=== PATIENT | female | born 1970 | race Caucasian/White ===

== ENCOUNTER 2023-09-10 18:55 | Outpatient (RCR) | payer OTHER, SELFPAY | END 2023-09-10 23:59 | disposition home or self-care (01) | LOC: RPT 18:55 | PROVIDERS: ATTENDING PHYSICIAN Physician Assistant Medical | DX: M54.41 Lumbago with sciatica, right side (principal); M25.512 Pain in left shoulder; Z73.6 Limitation of activities due to disability; M25.551 Pain in right hip; M62.81 Muscle weakness (generalized) | CPT/HCPCS: 97110; 97162; 97530 ==

== ENCOUNTER 2023-10-15 18:07 | Outpatient (RCR) | payer OTHER, SELFPAY | END 2023-10-15 23:59 | disposition home or self-care (01) | LOC: RPT 18:07 | PROVIDERS: ATTENDING PHYSICIAN Physician Assistant Medical | DX: M54.41 Lumbago with sciatica, right side (principal); M25.512 Pain in left shoulder; Z73.6 Limitation of activities due to disability; M25.551 Pain in right hip | CPT/HCPCS: 97110; 97140; 97530 ==

== ENCOUNTER 2023-11-12 17:55 | Outpatient (RCR) | payer OTHER, SELFPAY | END 2023-11-12 23:59 | disposition home or self-care (01) | LOC: RPT 17:55 | PROVIDERS: ATTENDING PHYSICIAN Physician Assistant Medical | DX: M54.41 Lumbago with sciatica, right side (principal); M25.512 Pain in left shoulder; M25.551 Pain in right hip; Z73.6 Limitation of activities due to disability | CPT/HCPCS: 97110; 97112; 97530 ==

== ENCOUNTER 2023-12-03 17:06 | Outpatient (RCR) | payer OTHER, SELFPAY | END 2023-12-04 07:41 | disposition home or self-care (01) | LOC: RPT 17:06 | PROVIDERS: ATTENDING PHYSICIAN Physician Assistant Medical | DX: M54.41 Lumbago with sciatica, right side (principal); M25.512 Pain in left shoulder; Z73.6 Limitation of activities due to disability; M25.551 Pain in right hip; M62.81 Muscle weakness (generalized) | CPT/HCPCS: 97110; 97530 ==

== ENCOUNTER → 2023-12-19 06:32 | Day surgery (SDC) | payer OTHER, SELFPAY | LOC: GI 06:32 | PROVIDERS: ATTENDING PHYSICIAN Internal Medicine Gastroenterology; FAMILY PHYSICIAN Physician Assistant Medical | DX: Z12.11 Encounter for screening for malignant neoplasm of colon (principal); K57.30 Diverticulosis of large intestine without perforation or abscess without bleeding; K64.8 Other hemorrhoids; Z83.719 Family history of colon polyps, unspecified | CPT/HCPCS: G0105 ==

== ENCOUNTER → 2024-09-19 08:31 | Outpatient (REF) | payer OTHER, SELFPAY | LOC: WDC 08:31 | PROVIDERS: ATTENDING PHYSICIAN Obstetrics & Gynecology Gynecology; FAMILY PHYSICIAN Physician Assistant Medical | DX: Z12.31 Encounter for screening mammogram for malignant neoplasm of breast (principal) | CPT/HCPCS: 77063; 77067 ==

== ENCOUNTER → 2024-10-20 07:23 | Outpatient (REF) | payer OTHER, SELFPAY | LOC: HWRAD 07:23 | PROVIDERS: ATTENDING PHYSICIAN Otolaryngology Facial Plastic Surgery; FAMILY PHYSICIAN Physician Assistant Medical | DX: J32.2 Chronic ethmoidal sinusitis (principal); R43.0 Anosmia | CPT/HCPCS: 70486 ==

== ENCOUNTER → 2025-08-07 10:30 | Outpatient (REF) | payer SELFPAY | LOC: RAD 10:30 | PROVIDERS: ATTENDING PHYSICIAN Internal Medicine Cardiovascular Disease; FAMILY PHYSICIAN Physician Assistant Medical | DX: Z13.220 Encounter for screening for lipoid disorders (principal); R06.09 Other forms of dyspnea | CPT/HCPCS: 75571 ==

== ENCOUNTER → 2025-08-16 10:47 | Outpatient (REF) | payer OTHER, SELFPAY | LOC: RAD 10:47 | PROVIDERS: ATTENDING PHYSICIAN Physician Assistant Medical | DX: M54.50 Low back pain, unspecified (principal) | CPT/HCPCS: 72110; 72202 ==